=== PATIENT | male | born 1975 | race Caucasian/White ===

== ENCOUNTER 2018-01-22 18:39 | Emergency (ER) | payer BC ==
[2018-01-22 18:46] VITALS: BP 131/74
[2018-01-22] MEDS ORDERED: NS 0.9% 1000 ML* 1,000 ML IV ONE (19:19)
[2018-01-22] MEDS ORDERED: Ketorolac INJ* 30 MG/ML 1 ML VIAL IV PUSH ONE (19:20)
== END 2018-01-22 19:46 | disposition left against medical advice (07) ==
LOC: ED 18:39
DX: K92.2 Gastrointestinal hemorrhage, unspecified (principal); Z53.21 Procedure and treatment not carried out due to patient leaving prior to being seen by health care provider